=== PATIENT | female | born 1955 | race Caucasian/White ===

== ENCOUNTER → 2018-05-14 08:38 | Outpatient (CLI) | payer BC, SELFPAY ==
[2018-05-14 10:37] LABS: ALB/GLOB Ratio 1.1 RATIO (0.9-2.4); AST(SGOT) 22 U/L (15-37); Alanine Aminotransfer ALT/SGPT 29 U/L (13-56); Albumin, Serum 3.9 g/dL (3.2-5.0); Alkaline Phosphatase 124 U/L (45-117); Anion Gap 7 (5-15); BUN 24 mg/dL (7-18); Calcium,Total 9.1 mg/dL (8.5-10.1); Chloride 98 mmol/L (98-107); Cholesterol 143 mg/dL (200); EST Glomerular Filtration Rate 48 mL/min (>60); Est Glom Filt Rate - Afr Amer 59 mL/min (>60); Globulin 3.6 g/dL (2.2-4.2); Glucose 92 mg/dL (74-106); High Density Lipoprotein 72 mg/dL; Potassium 4.3 mmol/L (3.5-5.1); Protein, Total 7.5 g/dL (6.4-8.2); Sodium Level 131 mmol/L (136-145); Triglycerides 78 mg/dL; Very Low Density Lipoprotein 16 mg/dL (5-40)
== END ==
PROVIDERS: Family Provider Family Medicine; PCP Family Medicine; Visit Provider Family Medicine
DX: E78.2 Mixed hyperlipidemia (principal)
CPT/HCPCS: 36415; 80053; 80061

== ENCOUNTER → 2018-05-22 09:36 | Outpatient (CLI) | payer BC, SELFPAY ==
[2018-05-22 12:18] LABS: Anion Gap 6 (5-15); BUN 15 mg/dL (7-18); BUN/Creat Ratio 14.2 RATIO (10-20); Chloride 98 mmol/L (98-107); Creatinine, Serum 1.06 mg/dL (0.55-1.02); EST Glomerular Filtration Rate 56 mL/min (>60); Est Glom Filt Rate - Afr Amer 68 mL/min (>60); Glucose 97 mg/dL (74-106); Potassium 4.1 mmol/L (3.5-5.1); Sodium Level 131 mmol/L (136-145)
== END ==
PROVIDERS: Family Provider Family Medicine; PCP Family Medicine; Visit Provider Family Medicine
DX: E87.1 Hypo-osmolality and hyponatremia (principal)
CPT/HCPCS: 36415; 80048

== ENCOUNTER → 2018-06-08 15:03 | Outpatient (CLI) | payer BC, SELFPAY ==
[2018-06-08 18:58] LABS: Anion Gap 9 (5-15); BUN 18 mg/dL (7-18); BUN/Creat Ratio 14.9 RATIO (10-20); Calcium,Total 9.2 mg/dL (8.5-10.1); Chloride 102 mmol/L (98-107); Creatinine, Serum 1.21 mg/dL (0.55-1.02); EST Glomerular Filtration Rate 48 mL/min (>60); Est Glom Filt Rate - Afr Amer 58 mL/min (>60); Glucose 84 mg/dL (74-106); Sodium Level 136 mmol/L (136-145)
== END ==
PROVIDERS: Family Provider Family Medicine; PCP Family Medicine; Visit Provider Family Medicine
DX: I10 Essential (primary) hypertension (principal)
CPT/HCPCS: 36415; 80048

== ENCOUNTER → 2018-09-03 16:33 | Outpatient (CLI) | payer BC, MEDICARE, SELFPAY ==
[2017-07-10 08:49] VITALS: BMI 30.7
--- NOTE | 2018-09-03 16:43 | RAD_ITS ---
STUDY: X-RAY CHEST REASON FOR EXAM: Female, 63 years old. Persistent cough. Aspiration several days ago. TECHNIQUE: PA and lateral chest. COMPARISON: September 20, 2013. CT chest October 05, 2013. FINDINGS: The lungs are clear and expanded. There is no demonstrated pleural abnormality. Normal size heart. Densely calcified right hilar lymph nodes noted previously. Normal visualized pulmonary arteries. Normal visualized aortic arch and descending thoracic aorta. Normal visualized thoracic spine. Normal visualized ribs, clavicles, and shoulders. There is no demonstrated abnormality of the visualized soft tissue structures of the upper abdomen. Spinal cord stimulator catheter in the thoracic spine. RAD/Chest PA and Lateral IMPRESSION: No acute cardiopulmonary disease. Old granulomatous disease. Electronically Signed: Eulalio Mcpherson MD at 2:54 EST , Service support ,
== END ==
PROVIDERS: Family Provider Family Medicine; PCP Family Medicine; Referring Provider Family Medicine; Visit Provider Family Medicine
DX: T17.908A Unspecified foreign body in respiratory tract, part unspecified causing other injury, initial encounter (principal); X58.XXXA Exposure to other specified factors, initial encounter; Y93.9 Activity, unspecified; Y92.9 Unspecified place or not applicable; Y99.9 Unspecified external cause status; R05 Cough
CPT/HCPCS: 71046

== ENCOUNTER → 2018-09-25 12:40 | Outpatient (CLI) | payer BC, MEDICARE, SELFPAY ==
[2017-07-10 08:49] VITALS: BMI 30.7
--- NOTE | 2018-09-25 12:43 | RAD_ITS ---
HISTORY: confirmation of SCS leads-post lumbar laminectomy surgery in 2017 COMPARISON: Fluoroscopic images of the spine 07/10/17. FINDINGS: # of images incl. paperwork: 2 XR Spine Thoracic 2 Views: 2 views. 2 leads extend cephalad from the lumbar spine in the spinal canal, tips at the levels of the T8 and T7 vertebral bodies. No apparently discontinuity. VERTEBRAE: Preserved vertebral body height. No fracture. VERTEBRAL ALIGNMENT: No spondylolisthesis. There is preservation of the normal thoracic kyphosis. DISCS: Degenerative discogenic changes are noted. INCLUDED CHEST/ABDOMEN: Calcified hilar lymph nodes incidentally noted. RAD/Thoracic Spine 3 Views IMPRESSION: Degenerative changes. No acute fracture or spondylolisthesis. Thoracic spinal leads as above. at 2238 Reported and signed by: Juan Jose Syed MD Electronically Signed: Juan Jose Syed, at 22:37 EST Tel , Service support ,
== END ==
PROVIDERS: Family Provider Family Medicine; PCP Family Medicine; Referring Provider Nurse Practitioner Family; Visit Provider Nurse Practitioner Family
DX: M96.1 Postlaminectomy syndrome, not elsewhere classified (principal)
CPT/HCPCS: 72072

== ENCOUNTER → 2018-10-29 11:48 | Outpatient (CLI) | payer BC, MEDICARE, SELFPAY ==
--- NOTE | 2018-10-29 11:52 | RAD_ITS ---
STUDY: X-RAY - LEFT HIP REASON FOR EXAM: Female, 63 years old. Radiating left hip pain TECHNIQUE: 3 views of the hip. COMPARISON: None. FINDINGS: Normal femoral head, neck, intertrochanteric region and visualized proximal femur. Normal acetabulum. There is mild articular joint space narrowing. Normal visualized superior and inferior pubic rami and ischial tuberosities. Surgical hardware in the lower lumbar spine free of complication RAD/HIP, UNI W/ Pelvis 2-3 Views IMPRESSION: Mild left hip arthrosis Electronically Signed: Nathan Hernandez MD at 12:38 EDT , Service support ,
== END ==
PROVIDERS: Family Provider Family Medicine; PCP Family Medicine; Referring Provider Anesthesiology Pain Medicine; Visit Provider Anesthesiology Pain Medicine
DX: M25.552 Pain in left hip (principal)
CPT/HCPCS: 73502

== ENCOUNTER → 2019-10-02 14:51 | Outpatient (CLI) | payer BC, MEDICARE, SELFPAY ==
[2017-07-10 08:49] VITALS: BMI 30.7
[2019-10-02 17:09] LABS: ALB/GLOB Ratio 1.2 RATIO (0.9-2.4); AST(SGOT) 20 U/L (15-37); Alanine Aminotransfer ALT/SGPT 29 U/L (13-56); Albumin, Serum 3.7 g/dL (3.2-5.0); Alkaline Phosphatase 104 U/L (45-117); Anion Gap 6 (5-15); BUN 14 mg/dL (7-18); BUN/Creat Ratio 9.7 RATIO (10-20); Calcium,Total 9.7 mg/dL (8.5-10.1); Chloride 104 mmol/L (98-107); Cholesterol 178 mg/dL (200); Creatinine, Serum 1.44 mg/dL (0.55-1.02); EST Glomerular Filtration Rate 39 mL/min (>60); Est Glom Filt Rate - Afr Amer 47 mL/min (>60); Globulin 3.1 g/dL (2.2-4.2); Glucose 76 mg/dL (74-106); High Density Lipoprotein 101 mg/dL; Potassium 3.9 mmol/L (3.5-5.1); Protein, Total 6.8 g/dL (6.4-8.2); Sodium Level 137 mmol/L (136-145); Triglycerides 186 mg/dL; Very Low Density Lipoprotein 37 mg/dL (5-40)
[2019-10-02 17:16] LABS: Vitamin D,25 Hydroxy 36.9 ng/mL (29.95-100.01)
== END ==
PROVIDERS: PCP Family Medicine; Referring Provider Family Medicine; Visit Provider Family Medicine
DX: I10 Essential (primary) hypertension (principal); E55.9 Vitamin D deficiency, unspecified
CPT/HCPCS: 36415; 80053; 80061; 82306

== ENCOUNTER → 2019-10-26 07:35 | Outpatient (CLI) | payer BC, MEDICARE, SELFPAY ==
--- NOTE | 2019-10-26 07:39 | BI_ITS ---
MAMMOGRAPHY - BILATERAL SCREENING REASON FOR EXAM: Female, 64 years old. Routine annual screening examination. PERTINENT HISTORY: Mother with breast cancer. TECHNIQUE: Digital bilateral breast fer (3D mammographic acquisition) in the CC and MLO projections. 2-D mediolateral oblique (MLO) and craniocaudad (CC) views of both breasts were obtained. CAD: Full Field Digital Mammography with Computer Added Detection was performed. COMPARISON: Comparison is made with prior study dated February 12, 2015 and June 08, 2012. FINDINGS: Breast Composition: There are scattered areas of fibroglandular density. There are no dominant masses or suspicious calcifications. No other significant abnormalities are identified. There has been no significant change since the prior study. BI/SCREEN MAMM (CAD) W/FER BILAT IMPRESSION: Stable bilateral screening mammogram. Yearly follow-up mammogram recommended. (A) ASSESSMENT CATEGORY: BIRADS Category 1: Negative. A letter regarding these results will be sent to the patient by the facility within 30 days. Approximately 10% of breast cancers are not detected by mammography. A normal mammogram should not delay biopsy of a clinically suspicious abnormality. [id number] Electronically Signed: Rodolfo Bonilla, at 8:44 EDT , Service support ,
== END ==
PROVIDERS: PCP Family Medicine; Referring Provider Family Medicine; Visit Provider Family Medicine
DX: Z12.31 Encounter for screening mammogram for malignant neoplasm of breast (principal); Z80.3 Family history of malignant neoplasm of breast
CPT/HCPCS: 77063; 77067

== ENCOUNTER → 2020-02-11 10:52 | Outpatient (CLI) | payer MEDICARE, BC, SELFPAY ==
--- NOTE | 2020-02-11 10:55 | RAD_ITS ---
STUDY: X-RAY LEFT FOOT, GREAT TOE REASON FOR EXAM: Female, 64 years old. Left great toe pain, slipped and fell 2 days ago TECHNIQUE: 3 view(s) of the toe were obtained. COMPARISON: None. FINDINGS: There is an acute minimally displaced fracture in the distal phalanx of the great toe with soft tissue swelling. No other demonstrated fracture, joint spaces are well-preserved. RAD/Toe(s) Min 2 Views IMPRESSION: Acute minimally displaced fracture in the distal phalanx of the great toe with soft tissue swelling Electronically Signed: Nathan Hernandez MD at 11:16 EDT , Service support ,
== END ==
PROVIDERS: PCP Family Medicine; Referring Provider Family Medicine; Visit Provider Family Medicine
DX: M79.675 Pain in left toe(s) (principal)
CPT/HCPCS: 73660

== ENCOUNTER → 2020-02-25 11:47 | Outpatient (CLI) | payer MEDICARE, BC, SELFPAY ==
[2017-07-10 08:49] VITALS: BMI 30.7
--- NOTE | 2020-02-25 12:00 | RAD_ITS ---
STUDY: X-RAY LEFT FOOT, GREAT TOE REASON FOR EXAM: Female, 64 years old. left great toe fx TECHNIQUE: 3 view(s) of the toe were obtained. COMPARISON: None. FINDINGS: Normal visualized metatarsus. Normal metatarsophalangeal (M.T.P) joint. Normal interphalangeal joints. Normal interphalangeal joints. There is an acute intra-articular fracture of the distal phalanx of the great toe with mild separation of fracture fragments Soft tissue swelling of the distal great toe RAD/Toe(s) Min 2 Views IMPRESSION: Acute intra-articular fracture of the distal phalanx of the great toe Electronically Signed: Aubrey Jenkins MD at 21:03 EDT , Service support ,
== END ==
PROVIDERS: PCP Family Medicine; Referring Provider Family Medicine; Visit Provider Family Medicine
DX: S92.919A Unspecified fracture of unspecified toe(s), initial encounter for closed fracture (principal); X58.XXXA Exposure to other specified factors, initial encounter; Y93.9 Activity, unspecified; Y92.9 Unspecified place or not applicable; Y99.9 Unspecified external cause status
CPT/HCPCS: 73660

== ENCOUNTER → 2020-09-23 13:59 | Outpatient (CLI) | payer MEDICARE, BC, SELFPAY ==
[2017-07-10 08:49] VITALS: BMI 30.7
[2020-09-23 17:46] LABS: Hematocrit 41.7 % (37-47); Hemoglobin 13.2 g/dL (12.0-15.0); Mean Corp Hgb Conc 31.7 g/dL (32-36); Mean Corpuscular Hgb 29.3 pg (27.0-32.0); Mean Corpuscular Volume 92.7 fL (81-99); Mean Platelet Vol. 10.1 fl (6.2-12.0); Platelet Count 367 K/mm3 (150-450); RBC Distribution Width CV 13.3 % (11.6-14.6); RBC Distribution Width SD 45.3 fl (35.1-43.9); White Blood Count 8.3 K/mm3 (4.4-11.0)
[2020-09-23 18:05] LABS: Erythrocyte Sedimentation Rate 15 mm/hr (0-30)
[2020-09-23 18:07] LABS: Vitamin B12 353 pg/mL (211-911); Vitamin D,25 Hydroxy 63.5 ng/mL
[2020-09-23 18:24] LABS: Anion Gap 8 (5-15); BUN 17 mg/dL (7-18); BUN/Creat Ratio 14.8 RATIO (10-20); Calcium,Total 9.5 mg/dL (8.5-10.1); Chloride 103 mmol/L (98-107); Creatinine, Serum 1.15 mg/dL (0.55-1.02); EST Glomerular Filtration Rate 51 mL/min (>60); Est Glom Filt Rate - Afr Amer 61 mL/min (>60); Ferritin 44 ng/mL (8-252); Glucose 85 mg/dL (74-106); Iron 37 ug/dL (50-170); Magnesium 2.2 mg/dL (1.6-2.6); Sodium Level 135 mmol/L (136-145); Thyroid Stim Hormone (TSH) 1.44 uIU/mL (0.358-3.74)
[2020-09-25 15:55] LABS: ANTINUCLEAR ANTIBODIES DIRECT Negative (Negative)
== END ==
PROVIDERS: PCP Family Medicine; Referring Provider Family Medicine; Visit Provider Family Medicine
DX: R25.9 Unspecified abnormal involuntary movements (principal)
CPT/HCPCS: 36415; 80048; 82306; 82607; 82728; 83540; 83735; 84443; 85027; 85652; 86038

== ENCOUNTER → 2020-10-07 12:01 | Outpatient (CLI) | payer MEDICARE, BC, SELFPAY ==
--- NOTE | 2020-10-07 12:05 | MRI_ITS ---
STUDY: MRI BRAIN WITHOUT CONTRAST REASON FOR EXAM: Female, 65 years old. involuntary movements, memory loss, jerking motions with limbs TECHNIQUE: Standardized multiplanar fat and water weighted pulse sequences were obtained. COMPARISON: None. FINDINGS: Normal size of the ventricles and extra-axial spaces for the patient''s age. There are multiple white matter hyperintensities, distributed throughout the deep white matter tracts of the cerebral hemispheres, consistent with mild chronic white matter ischemic changes. Normal bilateral basal ganglia. Normal thalami. There is no extra-axial fluid accumulation. Normal flow voids within the major intracranial circulation suggesting patency by spin echo criteria. Normal sella turcica, pituitary gland, infundibular stalk, optic chiasm and hypothalamus. Normal tectal plate and pineal gland. Normal midbrain, evelyne and medulla. Normal cerebellum. MRI/Brain without Contrast IMPRESSION: No acute intracranial abnormality. Mild chronic microvascular ischemic changes. Electronically Signed: Cehnte Gomes MD at 9:06 EST Tel , Service support ,
== END ==
PROVIDERS: PCP Family Medicine; Referring Provider Family Medicine; Visit Provider Family Medicine
DX: R25.9 Unspecified abnormal involuntary movements (principal)
CPT/HCPCS: 70551

== ENCOUNTER → 2020-10-29 10:39 | Outpatient (CLI) | payer MEDICARE, BC, SELFPAY ==
[2017-07-10 08:49] VITALS: BMI 30.7
--- NOTE | 2020-10-29 10:45 | RAD_ITS ---
STUDY: X-RAY - LUMBAR SPINE REASON FOR EXAM: Female, 65 years old. LUMBAR RADICULOPATHY TECHNIQUE: 2 view(s) of the lumbar spine were obtained. COMPARISON: 11/09/2011 FINDINGS: Limited exam, only 2 views. No gross acute abnormality. Stable postsurgical changes at L5-S1 with posterior laminectomy, bilateral radicular screws, and bilateral posterior fixation. Near complete loss of joint space and L5-S1. Moderate degenerative disc disease and loss of disc height at L3-L4 and L4-L5. No compression fractures. Normal curvature and alignment. There is an epidural stimulator terminating at the level of T9-T10. RAD/Lumbar Spine 2 or 3 Views IMPRESSION: No acute abnormalities. Grossly stable postsurgical changes at L5-S1. Electronically Signed: Mt Sage MD at 23:33 EST , Service support ,
--- NOTE | 2020-10-29 10:45 | RAD_ITS ---
STUDY: X-RAY - THORACIC SPINE REASON FOR EXAM: Female, 65 years old. ARTHROPATHY OF LUMBAR FACET JOINT TECHNIQUE: 2 view(s) of the thoracic spine were obtained. COMPARISON: 09/25/2018. FINDINGS: Normal kyphosis of the thoracic spine. There is no substantial scoliosis. There is multilevel endplate spondylosis of the thoracic vertebrae. There is multilevel disc space narrowing of the thoracic spine. No fractures. No malalignment. Stable appearance of lower thoracic spine epidural stimulator. The soft tissue structures are unremarkable. RAD/Thoracic Spine 3 Views IMPRESSION: No acute abnormalities or changes. Degenerative changes. Electronically Signed: Mt Sage MD at 23:53 EST , Service support ,
== END ==
PROVIDERS: PCP Family Medicine; Referring Provider Nurse Practitioner Family; Visit Provider Nurse Practitioner Family
DX: M46.96 Unspecified inflammatory spondylopathy, lumbar region (principal); M51.36 Other intervertebral disc degeneration, lumbar region; M96.1 Postlaminectomy syndrome, not elsewhere classified; M54.16 Radiculopathy, lumbar region
CPT/HCPCS: 72072; 72100

== ENCOUNTER → 2020-11-23 12:04 | Outpatient (CLI) | payer MEDICARE, BC, SELFPAY ==
--- NOTE | 2020-11-23 12:07 | BI_ITS ---
MAMMOGRAPHY - BILATERAL SCREENING 3-D TOMOSYNTHESIS REASON FOR EXAM: Female, 65 years old. SCREENING PERTINENT HISTORY: No significant family history. TECHNIQUE: 2-D mammograms and 3-D Tomosynthesis of the breast (s) were performed. CAD was performed. COMPARISON: None. FINDINGS: The breast composition is almost entirely fatty. There are benign intramammary lymph nodes, bilaterally. Scattered benign calcifications are seen. No dense spiculated masses or suspicious microcalcifications are identified. No architectural distortion is identified. There is no skin thickening or retraction. There has been no significant change since the prior study. BI/SCREENING MAMM (CAD), BILAT IMPRESSION: No mammographic signs of malignancy. Routine yearly mammograms recommended. ASSESSMENT CATEGORY: BIRADS Category 2: Benign. A letter regarding these results will be sent to the patient by the facility within 30 days. FOLLOW UP RECOMMENDATION: Yearly follow up mammogram recommended. (A) Approximately 10% of breast cancers are not detected by mammography. A normal mammogram should not delay biopsy of a clinically suspicious abnormality. Electronically Signed: Michael Hanley MD at 14:51 EDT Tel , Service support ,
== END ==
PROVIDERS: PCP Family Medicine; Referring Provider Family Medicine; Visit Provider Family Medicine
DX: Z12.31 Encounter for screening mammogram for malignant neoplasm of breast (principal)
CPT/HCPCS: 77067

== ENCOUNTER 2020-12-30 14:11 | Emergency (ER) | payer MEDICARE, BC, SELFPAY ==
[2020-12-30 14:13] VITALS: BP 121/81; PULSE 62; RESP 15; TEMP 36.6; O2SAT 97; BMI 31.3
--- NOTE | 2020-12-30 14:30 | RAD_ITS ---
STUDY: X-RAY - RIGHT TIBIA AND FIBULA REASON FOR EXAM: Female, 65 years old. Injury TECHNIQUE: 2 view(s) of the tibia and fibula were obtained. COMPARISON: None. FINDINGS: Normal visualized tibia. Nondisplaced fracture of the neck of the fibula. Soft tissue swelling. RAD/Tibia & Fibula 2 Views IMPRESSION: Nondisplaced fracture involving the neck of the fibula. Soft tissue swelling. Electronically Signed: Rodolfo Bonilla MD at 14:52 EDT , Service support ,
--- NOTE | 2020-12-30 14:31 | EDS_ITS ---
HPI History of Present Illness Chief Complaint: Lower Extremity Injury Informant: patient Occured/Mechanism Mechanism/Context: Yes jump Onset/Context/Timing Onset: Today Context: Sudden Onset Timing: Continuous Location: right calf/lateral lower leg Current Severity: Moderate Maximum Severity: Severe Worsened by: walking, some movements Relieved by: remaining still Associated Symptoms Associated Symptoms: Negative for Parasthesia, Weakness and Loss of Funtion Narrative Narrative: Patient states she was hiking with her , [place] so they stood up on a log. When she jumped off, she landed on her right foot mostly and had severe immediate pain into her lateral-posterior right lower leg. Hurts to walk and use it, no other injury. Unsure if she felt a pop or anything other than pain. [facility] Medical History (Updated 12/30/20 @ 15:[address] David Patterson MD) Back pain Hyperlipidemia Hypertension Home Medications atorvastatin [Lipitor] 40 mg PO DAILY 07/07/17 [History Last Taken Unknown] budesonide-formoterol [Symbicort 160/4.5 Mcg Inhaler (SP)] 1 puff INHALATION DAILY 07/07/17 [History Last Taken 07/10/17 07:00] fluoxetine 60 mg PO DAILY 07/07/17 [History Last Taken Unknown] fluticasone propionate 2 spray NASAL DAILY 07/07/17 [History Last Taken Unknown] gabapentin 300 mg PO TIDCM 07/07/17 [History Last Taken Unknown] hydrochlorothiazide 12.5 mg PO DAILY 07/07/17 [History Last Taken Unknown] lisinopril 10 mg PO QHS 07/07/17 [History Last Taken 07/10/17 07:00] lisinopril 20 mg PO DAILY 07/07/17 [History Last Taken Unknown] meloxicam 7.5 mg PO DAILY 07/07/17 [History Last Taken Unknown] oxycodone-acetaminophen 1 tab PO Q6H PRN PRN 07/07/17 [History Last Taken 07/10/17 07:00] Allergy/AdvReac Type Severity Reaction Status Date / Time adhesive tape AdvReac Other Verified 12/30/20 14:16 Surgical History (Updated 12/30/20 @ 14:28 by Jasmyn Alejandre) History of appendectomy Social History household members: spouse Smoking Status: Never smoker ROS ROS ED Constitutional Constitutional ED: Denies chills or fever(s) Musculoskeletal Musculoskeletal: Reports extremity pain; Denies neck pain Integumentary Denies Abrasions, rash or wounds Neurologic Neurologic: Denies paresthesias or weakness EXAM Physical Exam Const Vital Signs: 12/30/20 14:13 Temperature 97.9 F Temperature Source Temporal Pulse Rate 62 Respiratory Rate 15 Blood Pressure 121/81 H Blood Pressure Mean 94 Pulse Ox 97 Oxygen Delivery Method Room Air Positive well nourished and well developed General Appearance ED: well developed and NAD Neck full ROM and supple Back/Spine normal ROM and normal to inspection Extremity Extremity Narrative: Tenderness in the proximal aspect of the right gastrocnemius lateral, just posterior to the fibular head, which is nontender. No bony prominence tenderness throughout the right lower extremity. No knee ef fusion. Limited range at the knee due to pain in the calf. Nontender Achilles tendon, with movement present on Mayo test. Significant pain with active and passive dorsiflexion, with pain in the proximal calf. Good 2+/4 dorsalis pedis pulse. Neuro oriented x3, no focal motor deficits and no sensory deficits noted Sensorium / Orientation: alert Psych mental status grossly normal and thought process normal Skin no wounds Rashes: no rashes MDM MDM MDM Narrative Medical decision making narrative: Concern is for injury to the proximal calf muscle/tendon, and/or the fibula. Patient does not have any evidence of an ankle injury. X-rays of the right lower leg show minor nondisplaced fracture of the proximal fibula on my interpretation; radiology in agreement. Discussed w/ Dr. Conrad; advises crutches with limited weight-bearing for 2 weeks and follow up. Patient will be given analgesics, crutches, and close outpatient orthopedic follow-up. Radiography Diagnostic Testing: Radiology Impression Tibia/Fibula X-Ray 12/30/20 14:30 IMPRESSION: Nondisplaced fracture involving the neck of the fibula. Soft tissue swelling. Electronically Signed: Rodolfo Bonilla MD at 14:52 EDT , Service support , Discharge Plan Triage Chief Complaint: Lower Extremity Injury ED Provider: Dvaid Patterson Dx/Rx/DC Orders Clinical Impression: Closed traumatic nondisplaced fracture of proximal end of right fibula Instructions: Using Crutches ([id number]), ED Fracture, Lower Extremity Prescriptions: No Action atorvastatin [Lipitor] 40 MG tablet 40 mg PO DAILY RF: 0 lisinopril 20 MG tablet 20 mg PO DAILY RF: 0 meloxicam 7.5 MG tablet 7.5 mg PO DAILY RF: 0 oxycodone-acetaminophen 1 TABLET tablet 1 tab PO Q6H PRN PRN (Reason: Pain) RF: 0 lisinopril 10 MG tablet 10 mg PO QHS RF: 0 hydrochlorothiazide 12.5 MG capsule 12.5 mg PO DAILY RF: 0 gabapentin 300 MG capsule 300 mg PO TIDCM RF: 0 fluoxetine 20 MG capsule 60 mg PO DAILY RF: 0 fluticasone propionate 1 SPRAY Nasal.Sry 2 spray NASAL DAILY RF: 0 budesonide-formoterol [Symbicort] 1 INHALER inhaler 1 puff inhalation DAILY RF: 0 Primary Care Provider: Hugo Berger Referrals: Jarrell Conrad DO [STAFF PHYSICIAN] - 01/13/21 (or after -- call for appt) Disposition Disposition: Home, self care
[2020-12-30] MEDS: HYDROcodone Bitartrate/Apap 5/325 Tablet PO (14:34)
[2020-12-30 15:54] VITALS: RESP 18
== END 2020-12-30 15:55 | disposition home or self-care (01) ==
PROVIDERS: Emergency Provider Emergency Medicine; PCP Family Medicine
DX: S82.831A Other fracture of upper and lower end of right fibula, initial encounter for closed fracture (principal); W17.89XA Other fall from one level to another, initial encounter; Y93.01 Activity, walking, marching and hiking; Y92.9 Unspecified place or not applicable; Y99.9 Unspecified external cause status; I10 Essential (primary) hypertension; E78.5 Hyperlipidemia, unspecified; M54.9 Dorsalgia, unspecified; Z79.51 Long term (current) use of inhaled steroids; Z79.1 Long term (current) use of non-steroidal anti-inflammatories (NSAID); Z79.899 Other long term (current) drug therapy
CPT/HCPCS: 73590; 99283

== ENCOUNTER → 2021-06-24 09:32 | Outpatient (CLI) | payer MEDICARE, SELFPAY ==
[2021-06-24 12:41] LABS: AST(SGOT) 19 U/L (15-37); Alanine Aminotransfer ALT/SGPT 38 U/L (13-56); Albumin, Serum 3.6 g/dL (3.2-5.0); Alkaline Phosphatase 119 U/L (45-117); Anion Gap 5 (5-15); BUN 15 mg/dL (7-18); Calcium,Total 9.7 mg/dL (8.5-10.1); Chloride 103 mmol/L (98-107); Cholesterol 175 mg/dL (200); Creatinine, Serum 1.15 mg/dL (0.55-1.02); EST Glomerular Filtration Rate 50 mL/min (>60); Est Glom Filt Rate - Afr Amer 61 mL/min (>60); Globulin 3.6 g/dL (2.2-4.2); Glucose 93 mg/dL (74-106); High Density Lipoprotein 103 mg/dL; Potassium 4.3 mmol/L (3.5-5.1); Protein, Total 7.2 g/dL (6.4-8.2); Sodium Level 139 mmol/L (136-145); Triglycerides 87 mg/dL; Very Low Density Lipoprotein 17 mg/dL (5-40)
[2021-06-24 12:58] LABS: Vitamin B12 798 pg/mL (211-911); Vitamin D,25 Hydroxy 78.8 ng/mL
== END ==
PROVIDERS: PCP Family Medicine; Referring Provider Family Medicine; Visit Provider Family Medicine
DX: E78.2 Mixed hyperlipidemia (principal); E53.8 Deficiency of other specified B group vitamins; E55.9 Vitamin D deficiency, unspecified
CPT/HCPCS: 36415; 80053; 80061; 82306; 82607

== ENCOUNTER → 2021-07-28 09:39 | Outpatient (CLI) | payer MEDICARE, SELFPAY ==
--- NOTE | 2021-07-28 09:44 | BD_ITS ---
STUDY: DUAL ENERGY X-RAY ABSORPTIOMETRY / DXA REASON FOR EXAM: Female, 66 years old. [id number] TECHNIQUE: Bone Mineral Density (BMD) measurements of lumbar spine and bilateral hips were obtained. COMPARISON: Comparison is made with prior examination dated 02/12/2015. FINDINGS: Lumbar Spine (L1-L4): g/cm2 (0.913) / T-score (-0.6) / Z-score (1.1) Findings are suggestive of normal bone density with a low fracture risk. Left Femur Total: g/cm2 (0.744) / T-score (-1.6) / Z-score (-0.4) Left Femoral Neck: g/cm2 (0.656) / T-score (-1.7) / Z-score (-0.2) Right Femur Total: g/cm2 (0.749) / T-score (-1.6) / Z-score (-0.4) Right Femoral Neck: g/cm2 (0.626) / T-score (-2.0) / Z-score (-0.5) BD/Dexa Bone Density Study IMPRESSION: The patient is considered osteopenic as outlined below according to World Dennys Organization (WHO) criteria with a moderate fracture risk. There has been worsening of bone density since the previous examination. Reference Information: The T-score is the number of standard deviations above or below the standard which is normal for young adults at their peak bone mineral density. The World Health Organization (WHO) interprets the T-scores as follows: Above -1 Normal bone density Between -1 and -2.5 Osteopenia Equal to / or below -2.5 Osteoporosis As a practical clinical guideline, osteopenia may be graded as follows: Mild -1 through -1.5 Moderate -1.6 through -2.0 Severe -2.1 through -2.4 The Z-score is the number of standard deviations above or below age-matched controls. A Z-score of less than -1.5 would be considered abnormal. References: 1. NIH Osteoporosis and Related Bone Diseases www osteo.org 2. International Society for Clinical Densitometry www iscd.org 3. National Osteoporosis Foundation www nof.org Electronically Signed: Rodolfo Bonilla MD at 9:07 EST , Service support ,
== END ==
PROVIDERS: PCP Family Medicine; Referring Provider Family Medicine; Visit Provider Family Medicine
DX: Z00.00 Encounter for general adult medical examination without abnormal findings (principal); Z78.0 Asymptomatic menopausal state; M85.80 Other specified disorders of bone density and structure, unspecified site
CPT/HCPCS: 77080

== ENCOUNTER 2021-12-01 08:00 | Outpatient (CLI) | payer MEDICARE, SELFPAY ==
--- NOTE | 2021-12-01 08:13 | MRI_ITS ---
STUDY: MRI LEFT HIP REASON FOR EXAM: Left hip pain for 4 months. TECHNIQUE: Standardized fat and water weighted pulse sequences were obtained in all 3 orthogonal planes. COMPARISON: Radiographs 10/29/2018. FINDINGS: There is mild left hip arthrosis with small marginal osteophytes of the femoral head and mild chondral thinning (proton-density sagittal image 9). Normal acetabulum. There is a tear of the left anterosuperior labrum (proton-density sagittal image 10). Normal femoral head. Normal femoral neck and intratrochanteric region. There is a tear of the left gluteus medius tendon (inversion recovery coronal images 14, 15). There is tendinosis of the left gluteus minimus tendon (inversion recovery coronal image 17 without focal discontinuity of the tendon. There is left greater trochanteric bursitis (inversion recovery coronal images 14, 15). Normal superior and inferior pubic rami. Normal pubic symphysis. Normal ischial tuberosity. There is low-grade partial tearing of the origin of the left hamstring tendons (T2 axial image 19). Normal visualized iliac wing, sacroiliac joint, and sacral ala. There is mild edema in the distal left gluteus medius muscle (inversion recovery coronal images 15-17). There is atrophy with partial fat replacement of the left gluteus minimus muscle (T1 coronal image 16). MRI/Lower Ext Joint Only (Routine) IMPRESSION: Tear of the left gluteus medius tendon and mild edema in the left gluteus medius muscle. Mild left hip arthrosis. Tear of the left anterosuperior labrum. Left greater trochanteric bursitis. Tendinosis of the left gluteus minimus tendon and atrophy of the left gluteus minimus muscle. Low-grade partial tearing of the left hamstring tendon origins. Electronically Signed: Mario Roland MD at 9:54 EDT ,
== END 2021-12-01 23:59 | disposition home or self-care (01) ==
PROVIDERS: PCP Family Medicine; Referring Provider Nurse Practitioner Family; Visit Provider Nurse Practitioner Family
DX: M25.552 Pain in left hip (principal)
CPT/HCPCS: 73721

== ENCOUNTER → 2022-02-03 | Outpatient (CLI) | payer MEDICARE, SELFPAY ==
[2022-02-03 12:19] LABS: Absolute Lymphocyte Count 1.64 X10^3/uL (0.83-4.51); Absolute Neutrophil Count 7.3 X10^3/uL (2.0-7.7); Basophil# 0.08 X10^3/uL; Basophil% 0.8 % (0-1); Eosinophil# 0.21 X10^3/uL; Eosinophils% 2.1 % (0-5); Hematocrit 41.9 % (37-47); Hemoglobin 14.1 g/dL (12.0-15.0); Lymphocyte # 1.64 X10^3/ul (0.83-4.51); Lymphocyte % 16.4 % (19-41); Mean Corp Hgb Conc 33.7 g/dL (32-36); Mean Corpuscular Hgb 31.3 pg (27.0-32.0); Mean Corpuscular Volume 93.1 fL (81-99); Mean Platelet Vol. 10.6 fl (6.2-12.0); NRBC Flagged by Analyzer 0 % (0-5); Neutrophil # 7.31 X10^3/uL (2.7-7.7); Neutrophil % 73.4 % (47-70); Platelet Count 325 K/mm3 (150-450); RBC Distribution Width CV 13.1 % (11.6-14.6); RBC Distribution Width SD 44.6 fl (35.1-43.9)
[2022-02-03 12:38] LABS: ALB/GLOB Ratio 1.2 RATIO (0.9-2.4); AST(SGOT) 20 U/L (15-37); Alanine Aminotransfer ALT/SGPT 27 U/L (13-56); Albumin, Serum 3.8 g/dL (3.2-5.0); Alkaline Phosphatase 90 U/L (45-117); Anion Gap 4 (5-15); BUN 21 mg/dL (7-18); BUN/Creat Ratio 18.1 RATIO (10-20); Chloride 106 mmol/L (98-107); Cholesterol 155 mg/dL (200); Creatinine, Serum 1.16 mg/dL (0.55-1.02); EST Glomerular Filtration Rate 50 mL/min (>60); Est Glom Filt Rate - Afr Amer 60 mL/min (>60); Globulin 3.2 g/dL (2.2-4.2); Glucose 90 mg/dL (74-106); High Density Lipoprotein 92 mg/dL; Potassium 4.7 mmol/L (3.5-5.1); Sodium Level 138 mmol/L (136-145); Triglycerides 77 mg/dL; Very Low Density Lipoprotein 15 mg/dL (5-40)
== END | disposition home or self-care (01) ==
PROVIDERS: PCP Family Medicine; Referring Provider Family Medicine; Visit Provider Nurse Practitioner Family
DX: E78.2 Mixed hyperlipidemia (principal); I49.9 Cardiac arrhythmia, unspecified
CPT/HCPCS: 36415; 80053; 80061; 85025

== ENCOUNTER → 2022-04-05 | Outpatient (CLI) | payer MEDICARE, SELFPAY ==
--- NOTE | 2022-04-05 12:45 | ECHOD_ITS ---
Reason For Study: Arrhythmia Procedure This was a 2D Doppler, Color Flow transthoracic echocardiogram. Exam performed in department. Left Ventricle Normal LV size. Left ventricular systolic function is normal. The estimated ejection fraction is 60 %. Normal diastology for age. No regional wall motion abnormalities noted. Right Ventricle Normal RV size. Normal systolic function. Atria Normal left atrium. Normal right atrium. Mitral Valve Normal mitral valve. Mild (1+) mitral valve insufficiency. Tricuspid Valve Normal tricuspid valve. Mild (1+) tricuspid valve insufficiency. Pulmonary artery systolic pressure is 28 mmHg. Aortic Valve Trisinus/trileaflet aortic valve. Pulmonic Valve Normal pulmonic valve. Great Vessels Normal aortic root. The pulmonary artery is normal size. Inferior vena cava collapse with respiration. Pericardium/Pleural No pericardial effusion. MMode/2D Measurements & Calculations LVIDd: 4.2 cm IVSd: 1.5 cm Ao root diam: 3.2 cm LVIDs: 2.1 cm LVPWd: 1.1 cm RVDd: 3.4 cm FS: 48.9 % LAV(MOD-bp): 52.2 ml LVAd ap4: 26.1 cm2 LVAd ap2: 25.8 cm2 LAV(MOD-bp) Indexed: 28.6 ml/m2 LVLd ap4: 7.5 cm LVLd ap2: 7.6 cm LAV(MOD-sp2): 49.5 ml EDV(MOD-sp4): 74.4 ml EDV(MOD-sp2): 74.3 ml LAV(MOD-sp4): 52.8 ml EDV(sp4-el): 77.7 ml EDV(sp2-el): 74.4 ml LVAs ap4: 14.1 cm2 LVAs ap2: 13.0 cm2 LVLs ap4: 6.3 cm LVLs ap2: 6.4 cm ESV(MOD-sp4): 27.0 ml ESV(MOD-sp2): 23.3 ml ESV(sp4-el): 26.7 ml ESV(sp2-el): 22.7 ml EF(MOD-sp4): 63.7 % EF(MOD-sp2): 68.7 % EF(sp4-el): 65.7 % SV(MOD-sp4): 47.3 ml SV(MOD-sp2): 51.0 ml SV(sp4-el): 51.0 ml LA dimension(2D): 3.4 cm LA A4 area: 19.2 cm2 RA A4 area: 16.9 cm2 Time Measurements MV dec time: 0.19 sec Doppler Measurements & Calculations MV E max derek: 97.8 cm/sec Lat Peak E' Derek: 12.6 cm/sec Med Peak E' Derek: 9.3 cm/sec MV A max derek: 75.5 cm/sec E/E' lat: 7.7 E/E' med: 10.5 MV E/A: 1.3 MV dec slope: 519.5 cm/sec2 Ao V2 max: 154.0 cm/sec LV V1 max: 114.0 cm/sec Ao max P.5 mmHg LV V1 max P.2 mmHg Ao V2 mean: 99.3 cm/sec LV V1 mean P.0 mmHg Ao mean P.6 mmHg LV V1 mean: 80.8 cm/sec Ao V2 VTI: 35.8 cm LV V1 VTI: 26.0 cm PA V2 max: 77.9 cm/sec TR max derek: 245.1 cm/sec TR max P.1 mmHg ECHO/Echo Complete Interpretation Summary Normal LV size. Left ventricular systolic function is normal. The estimated ejection fraction is 60 %. Mild (1+) mitral valve insufficiency. Pulmonary artery systolic pressure is 28 mmHg. Ordering Physician: Dena Waters Referring Physician: Dena Waters Performed By: Ximena King RDCS
== END | disposition home or self-care (01) ==
LOC: CVS 12:34
PROVIDERS: PCP Family Medicine; Referring Provider Nurse Practitioner Family; Visit Provider Nurse Practitioner Family
DX: I49.9 Cardiac arrhythmia, unspecified (principal); R94.31 Abnormal electrocardiogram [ECG] [EKG]
CPT/HCPCS: 93306

== ENCOUNTER → 2022-09-28 | Outpatient (CLI) | payer MEDICARE, SELFPAY ==
[2022-09-28 15:12] LABS: Anion Gap 6 (5-15); BUN 25 mg/dL (7-18); BUN/Creat Ratio 20.8 RATIO (10-20); Calcium,Total 9.9 mg/dL (8.5-10.1); Chloride 105 mmol/L (98-107); EST Glomerular Filtration Rate 48 mL/min (>60); Est Glom Filt Rate - Afr Amer 58 mL/min (>60); Glucose 94 mg/dL (74-106); Potassium 4.4 mmol/L (3.5-5.1); Sodium Level 140 mmol/L (136-145)
== END | disposition home or self-care (01) ==
LOC: MTLAB 11:45
PROVIDERS: PCP Family Medicine; Referring Provider Nurse Practitioner Family; Visit Provider Nurse Practitioner Family
DX: M96.1 Postlaminectomy syndrome, not elsewhere classified (principal)
CPT/HCPCS: 36415; 80048

== ENCOUNTER → 2022-10-12 | Outpatient (CLI) | payer MEDICARE, SELFPAY ==
--- NOTE | 2022-10-12 10:25 | RAD_ITS ---
STUDY: X-RAY - LUMBAR SPINE REASON FOR EXAM: Female, 67 years old. Radiating low back pain TECHNIQUE: 4 view(s) of the lumbar spine were obtained. COMPARISON: None FINDINGS: Normal lumbar lordosis. There is a mild levoscoliosis of the lumbar spine. There is a normal alignment of the vertebrae in the lateral view. There is multilevel endplate spondylosis of the lumbar vertebrae. There is multi-level degenerative disc disease with multi-level disc space narrowing. There is no demonstrated fracture. Cysts surgical hardware in L4 and L5 free of complication. Satisfactory appearance of a neural stimulator. The soft tissue structures are unremarkable. RAD/L/S Spine Min 4 Views IMPRESSION: Degenerative changes of the spine, as detailed above. Electronically Signed: Nathan Hernandez MD at 10:44 EST ,
== END | disposition home or self-care (01) ==
LOC: MTRAD 10:21
PROVIDERS: PCP Family Medicine; Referring Provider Nurse Practitioner Family; Visit Provider Nurse Practitioner Family
DX: M47.816 Spondylosis without myelopathy or radiculopathy, lumbar region (principal); M46.96 Unspecified inflammatory spondylopathy, lumbar region; M54.16 Radiculopathy, lumbar region; M96.1 Postlaminectomy syndrome, not elsewhere classified; M54.50 Low back pain, unspecified; M51.36 Other intervertebral disc degeneration, lumbar region
CPT/HCPCS: 72110

== ENCOUNTER → 2022-12-07 | Outpatient (CLI) | payer MEDICARE, SELFPAY ==
[2022-12-07 16:43] LABS: Anion Gap 3 (5-15); BUN 22 mg/dL (7-18); BUN/Creat Ratio 23.1 RATIO (10-20); Calcium,Total 9.4 mg/dL (8.5-10.1); Chloride 104 mmol/L (98-107); Creatinine, Serum 0.95 mg/dL (0.55-1.02); EST Glomerular Filtration Rate 62 mL/min (>60); Est Glom Filt Rate - Afr Amer 75 mL/min (>60); Glucose 99 mg/dL (74-106); Potassium 3.9 mmol/L (3.5-5.1); Sodium Level 134 mmol/L (136-145)
== END | disposition home or self-care (01) ==
LOC: MTLAB 14:35
PROVIDERS: PCP Family Medicine; Referring Provider Nurse Practitioner Family; Visit Provider Nurse Practitioner Family
DX: M96.1 Postlaminectomy syndrome, not elsewhere classified (principal)
CPT/HCPCS: 36415; 80048

== ENCOUNTER → 2022-12-16 | Outpatient (CLI) | payer MEDICARE, SELFPAY ==
--- NOTE | 2022-12-16 06:49 | MRI_ITS ---
STUDY: MRI LUMBAR SPINE WITH AND WITHOUT CONTRAST REASON FOR EXAM: Female, 67 years old. POST LAMINECTOMY SYNDROME TECHNIQUE: Standardized fat and water weighted pulse sequences were obtained in the sagittal and axial planes. IV 15cc clariscan was administered for the contrast portion of the examination. COMPARISON: None FINDINGS: T12-L1: Normal endplates. Normal disc height, hydration and morphology. Degenerative bilateral facet joints. Normal central canal and bilateral lateral recesses. L5/S1 pedicle rods and screws showing normal alignment with no evidence of hardware failure. No evidence of osseous increased STIR signal to suggest osseous injury. Normal lumbar lordosis. There is no substantial scoliosis. Normal conus medullaris that terminates at the T12/L1. L1-2: Normal endplates. Normal disc height, hydration and morphology. Normal bilateral facet joints. Normal central canal and bilateral lateral recesses. Normal bilateral intervertebral neural foramina. L2-3: Disc desiccation and decreased disc space with mild broad-based disc bulge is present. Facet hypertrophy is noted with no significant spinal canal narrowing and minimal bilateral foraminal narrowing. L3-4: Decreased disc space with near [id number] articulation with mild broad-based disc bulge with no significant spinal canal narrowing or foraminal narrowing. L4-5: Degenerative disc changes in decreased disc space with minimal broad-based disc bulge and facet arthropathy with mild left foraminal narrowing. L5-S1: Degenerative disc changes and disc space loss with no significant spinal canal narrowing or foraminal narrowing. Posterior laminectomy changes are present at this level. Normal visualized sacral ala. Normal visualized paraspinous soft tissue structures. MRI/Spine Lumbar W/WO Contrast IMPRESSION: Multilevel disc degenerative changes above with mild areas of foraminal narrowing as described with no significant spinal canal narrowing. L5/S1 pedicle rods and screws showing normal alignment with no evidence of hardware failure. Posterior laminectomy changes at L5/S1 with no evidence of underlying clumping of the nerve roots to suggest arachnoiditis. Electronically Signed: Wood Francis DO at 18:36 EDT ,
== END | disposition home or self-care (01) ==
PROVIDERS: PCP Family Medicine; Referring Provider Nurse Practitioner Gerontology; Visit Provider Nurse Practitioner Gerontology
DX: M51.36 Other intervertebral disc degeneration, lumbar region (principal); M46.96 Unspecified inflammatory spondylopathy, lumbar region; M96.1 Postlaminectomy syndrome, not elsewhere classified; M54.16 Radiculopathy, lumbar region; M47.816 Spondylosis without myelopathy or radiculopathy, lumbar region; M47.817 Spondylosis without myelopathy or radiculopathy, lumbosacral region
CPT/HCPCS: 72158; 93225; 93226; A9575

== ENCOUNTER → 2023-03-17 | Outpatient (CLI) | payer MEDICARE, SELFPAY ==
[2023-03-17 11:30] LABS: Bacteria 0 SEEN /hpf (None Seen); Mucous, Urine 0 SEEN /hpf (<or=2+); Red Blood Cells-Urine 0 SEEN /hpf (0-5); Squamous Epithelial Cells - UA 0 SEEN /hpf (5-10); White Blood Cells 0 SEEN /hpf (0-5)
--- NOTE | 2023-03-17 11:56 | US_ITS ---
STUDY: RENAL ULTRASOUND - COMPLETE REASON FOR EXAM: Female, 67 years old. CKD TECHNIQUE: Ultrasound evaluation of the kidneys was performed with real-time and static brock-scale imaging. COMPARISON: None. FINDINGS: RIGHT KIDNEY: Normal location of the right kidney, which is normal in size. The right kidney measures 9.8 cm. There is a normal cortex of the right kidney. The renal cortex measures 1.0 cm. 1 cm cyst in the upper pole the right kidney. There are no right renal calculi. There is no right hydronephrosis. DISTAL RIGHT URETER: There is non-visualization of the distal right ureter. There is no demonstrated right ureterovesical junction calculus. There is a visualized right ureteral jet. LEFT KIDNEY: Normal location of the left kidney, which is normal in size. The left kidney measures 9.7 cm. There is a normal cortex of the left kidney. The renal cortex measures 1.2 cm. There is no left renal mass or cyst. There are no left renal calculi. There is no left hydronephrosis. DISTAL LEFT URETER: There is non-visualization of the distal left ureter. There is no demonstrated left ureterovesical junction calculus. There is a visualized left ureteral jet. BLADDER: The distended urinary bladder has a volume of 197 ml. The empty urinary bladder has a volume of ml. There is a normal wall thickness of the distended urinary bladder. There is no demonstrated mass within the urinary bladder. There are no demonstrated bladder calculi. US/Kidney and Bladder IMPRESSION: Normal ultrasound of the kidneys and urinary bladder. Electronically Signed: Michael Squires MD at 23:42 EDT ,
[2023-03-17 15:11] LABS: Color, Urine Yellow (Yellow); Glucose, Dipstick Normal (Normal); Ketone-Dipstick Negative (Negative); Leukocyte Esterase-Dipstick 25 /ul (Negative); Nitrite-Dipstick Negative (Negative); Occult Blood-Urine Negative /ul (Negative); Protein-Dipstick Negative (Negative); Specific Gravity, Urine 1.015 (1.002-1.030); Urine Bilirubin Dipstick Negative (Negative); Urine Clarity Clear (Clear); Urine Urobilinogen Normal (Normal)
[2023-03-17 15:31] LABS: ALB/GLOB Ratio 1.1 RATIO (0.9-2.4); AST(SGOT) 25 U/L (15-37); Alanine Aminotransfer ALT/SGPT 30 U/L (13-56); Albumin, Serum 3.6 g/dL (3.2-5.0); Alkaline Phosphatase 123 U/L (45-117); Anion Gap 6 (5-15); BUN 20 mg/dL (7-18); BUN/Creat Ratio 18.3 RATIO (10-20); Calcium,Total 9.4 mg/dL (8.5-10.1); Chloride 105 mmol/L (98-107); Cholesterol 203 mg/dL (200); Creatinine, Serum 1.09 mg/dL (0.55-1.02); EST Glomerular Filtration Rate 53 mL/min (>60); Est Glom Filt Rate - Afr Amer 64 mL/min (>60); Globulin 3.4 g/dL (2.2-4.2); Glucose 84 mg/dL (74-106); High Density Lipoprotein 82 mg/dL; Potassium 4.2 mmol/L (3.5-5.1); Sodium Level 140 mmol/L (136-145); Triglycerides 165 mg/dL; Very Low Density Lipoprotein 33 mg/dL (5-40)
[2023-03-17 15:36] LABS: Vitamin B12 616 pg/mL (211-911); Vitamin D,25 Hydroxy 52.2 ng/mL
[2023-03-17 15:45] LABS: Microalbumin,Random Urine < 5.0 mg/L (NO RANGE EST.)
[2023-03-17 15:56] LABS: Erythrocyte Sedimentation Rate 2 mm/hr (0-30)
[2023-03-20 13:07] LABS: ANTINUCLEAR ANTIBODIES DIRECT Negative (Negative)
== END | disposition home or self-care (01) ==
LOC: US 11:17
PROVIDERS: PCP Family Medicine; Referring Provider Family Medicine; Visit Provider Family Medicine
DX: E55.9 Vitamin D deficiency, unspecified (principal); N18.31 Chronic kidney disease, stage 3a; I12.9 Hypertensive chronic kidney disease with stage 1 through stage 4 chronic kidney disease, or unspecified chronic kidney disease; E53.8 Deficiency of other specified B group vitamins
CPT/HCPCS: 36415; 76770; 80053; 80061; 81001; 82043; 82306; 82607; 84165; 84166; 85652; 86038

== ENCOUNTER → 2025-07-24 | Outpatient (CLI) | payer MEDICARE, SELFPAY ==
--- NOTE | 2025-07-24 10:13 | EKG12_ITS ---
Test Reason : PREOP Blood Pressure : */* mmHG Vent. Rate : 49 BPM Atrial Rate : 49 BPM P-R Int : 144 ms QRS Dur : 78 ms QT Int : 442 ms P-R-T Axes : 9 72 67 degrees QTcB Int : 399 ms Marked sinus bradycardia Early repolarization Abnormal ECG Confirmed by ADONAY CADE, JOSEY ([id number]), deputy editor in chief FREDA MATTHEWS ([id number]) on 07/25/2025 9:18:08 AM Referred By: Aubrey Plummer Confirmed By: JOSEY URIAS MD
[2025-07-24 11:06] LABS: Hematocrit 41.0 % (37-47); Hemoglobin 14.0 g/dL (12.0-15.0); Mean Corp Hgb Conc 34.1 g/dL (32-36); Mean Corpuscular Volume 91.3 fL (81-99); Mean Platelet Vol. 10.6 fl (6.2-12.0); Platelet Count 310 K/mm3 (150-450); RBC Distribution Width CV 13.2 % (11.6-14.6); RBC Distribution Width SD 44.4 fl (35.1-43.9); Red Blood Count 4.49 M/mm3 (4.2-5.4); White Blood Count 7.3 K/mm3 (4.4-11.0)
[2025-07-24 11:24] LABS: Prothrombin Time (Protime)PT. 13.3 SECONDS (11.7-14.9)
[2025-07-24 11:58] LABS: Anion Gap 9 (5-15); BUN 18 mg/dL (4-19); BUN/Creat Ratio 16.1 RATIO (10-20); Calcium,Total 9.7 mg/dL (7.6-11.0); Carbon Dioxide 24.0 mmol/L (21.0-32.0); Chloride 105 mmol/L (98-108); Glucose 99 mg/dL (70-99); Potassium 4.5 mmol/L (3.3-5.1)
== END | disposition home or self-care (01) ==
PROVIDERS: PCP Family Medicine; Referring Provider Anesthesiology Pain Medicine; Visit Provider Anesthesiology Pain Medicine
DX: M43.28 Fusion of spine, sacral and sacrococcygeal region (principal)
CPT/HCPCS: 36415; 80048; 85027; 85610; 93005